=== PATIENT | female | born 1990 | race Hispanic/Latino ===

== ENCOUNTER 2019-04-24 18:43 | Emergency (ER) | payer SELFPAY ==
--- NOTE | 2019-04-24 19:05 | Emergency Department Report ---
Blank Doc - Documentation Documentation: 28-year-old female that presents with nausea and vomiting. This initial assessment/diagnostic orders/clinical plan/treatment(s) is/are subject to change based on patient's health status, clinical progression and re- assessment by fellow clinical providers in the ED. Further treatment and workup at subsequent clinical providers discretion. Patient/guardians urged not to elope from the ED as their condition may be serious if not clinically assessed and managed. Initial orders include: 1- Patient sent to [facility] for further evaluation and treatment 2- labs 3- UA
[2019-04-24 19:06] VITALS: BP 124/79
[2019-04-24 19:54] LABS: Bacteria,Urine 1+ /HPF (Negative); Bilirubin,Urine NEG (Negative); Blood,Urine NEG (Negative); Color,Urine Yellow (Yellow); Mucus,Urine 3+ /HPF
[2019-04-24 19:59] LABS: WBC,Urine < 1.0 /HPF (0.0-6.0)
[2019-04-24 21:10] LABS: Basophils # (Auto) 0.1 K/mm3 (0.0-0.1); Basophils % (Auto) 0.8 % (0.0-1.8); Eosinophils # (Auto) 0.2 K/mm3 (0.0-0.4); Eosinophils % (Auto) 1.9 % (0.0-4.3); Hematocrit 38.8 % (30.3-42.9); Hemoglobin 13.2 gm/dl (10.1-14.3); Lymphocytes # (Auto) 2.1 K/mm3 (1.2-5.4); Lymphocytes % (Auto) 22.6 % (13.4-35.0); Mean Corpuscular HGB Conc 34 % (30-34); Mean Corpuscular Volume 101 fl (79-97); Monocytes # (Auto) 0.7 K/mm3 (0.0-0.8); Monocytes % (Auto) 7.7 % (0.0-7.3); Platelet Count 334 K/mm3 (140-440); Red Blood Count 3.83 M/mm3 (3.65-5.03); Red Cell Distribution Width 13.3 % (13.2-15.2)
[2019-04-24] MEDS ORDERED: ONDANSETRON 4 MG ODT TAB PO ONE (21:20)
--- NOTE | 2019-04-24 21:25 | Emergency Department Report ---
HPI - General Chief Complaint: Nausea/Vomiting/Diarrhea Time Seen by Provider: 04/24/19 19:03 - HPI HPI: Room 37 The patient is a 28-year-old female presenting with a chief complaint of nausea vomiting. The patient states she believes she ate something "bad" last night because she awakened this morning she had nausea vomiting, diaphoresis and felt hot. Patient denies diarrhea. Patient admits to intermittent cramping periumbilical pain with the vomiting but none currently. Patient denies history of fever. Patient denies dysuria, hematuria or vaginal discharge. Patient's last cycle occurred 03/26/2019 was within normal limits. When asked how she is feeling down the patient replies "good." Location: [See above] Duration: [See above] Quality: [See above] Severity: [See above] Timing: [See above] Context: [See above] Modifying factors: [See above] Associated signs and symptoms: [see above] ED Past Medical Hx - Past Medical History Previous Medical History?: No Hx Asthma: Yes - Surgical History Past Surgical History?: No Additional Surgical History: Fallopian tubes "flushed out" bilaterally, tonsillectomy - Family History Family history: no significant - Social History Smoking Status: Current Every Day Smoker (1/3 pack per day) Substance Use Type: None (denies illicit drug use), Alcohol (rarely) - Medications Home Medications: Home Medications Medication Instructions Recorded Confirmed Last Taken Type Ondansetron [Zofran ODT TAB] 8 mg PO Q8HR #20 tab.rapdis 04/24/19 Unknown Rx ED Review of Systems ROS: Stated complaint: VOMITING Other details as noted in HPI Constitutional: diaphoresis. denies: fever Eyes: denies: eye pain ENT: denies: throat pain Respiratory: no symptoms reported Cardiovascular: denies: chest pain Endocrine: no symptoms reported Gastrointestinal: abdominal pain, nausea, vomiting. denies: diarrhea Genitourinary: denies: dysuria, hematuria, discharge, abnormal menses Musculoskeletal: denies: back pain Neurological: denies: headache Physical Exam - Physical Exam Vital Signs: Vital Signs 04/24/19 19:04 Temperature 98.4 F Pulse Rate 74 Respiratory 18 Rate Blood Pressure 124/79 O2 Sat by Pulse 100 Oximetry Physical Exam: GENERAL: The patient is well-developed well-nourished female sitting on stretcher not appearing to be in acute distress. [] HEENT: Normocephalic. Atraumatic. Extraocular motions are intact. Patient has moist mucous membranes. NECK: Supple. Trachea midline CHEST/LUNGS: Clear to auscultation. There is no respiratory distress noted. HEART/CARDIOVASCULAR: Regular. There is no tachycardia. There is no gallop rub or murmur. ABDOMEN: Abdomen is soft, nontender. Patient has normal bowel sounds. There is no abdominal distention. SKIN: There is no rash. There is no edema. There is no diaphoresis. NEURO: The patient is awake, alert, and oriented. The patient is cooperative. The patient has normal speech MUSCULOSKELETAL: There is no evidence of acute injury. ED Course Vital Signs 04/24/19 19:04 Temperature 98.4 F Pulse Rate 74 Respiratory 18 Rate Blood Pressure 124/79 O2 Sat by Pulse 100 Oximetry - Reevaluation(s) Reevaluation #1: 04/24/19 22:05 Patient states she still feels good. Tolerating po ED Medical Decision Making - Lab Data Result diagrams: 04/24/19 20:59 04/24/19 20:59 Laboratory Tests 04/24/19 04/24/19 04/24/19 19:37 20:59 20:59 WBC 9.1 RBC 3.83 Hgb 13.2 Hct 38.8 MCV 101 H MCH 35 H MCHC 34 RDW 13.3 Plt Count 334 Lymph % (Auto) 22.6 Stark % (Auto) 7.7 H Eos % (Auto) 1.9 Baso % (Auto) 0.8 Lymph # 2.1 Stark # 0.7 Eos # 0.2 Baso # 0.1 Seg Neutrophils % 67.0 Seg Neutrophils # 6.1 Sodium 139 Potassium 4.7 Chloride 105.9 Carbon Dioxide 20 L Anion Gap 18 BUN 14 Creatinine 0.7 Estimated GFR > 60 BUN/Creatinine Ratio 20 Glucose 98 Calcium 8.9 Total Bilirubin 0.30 AST 13 ALT 9 Alkaline Phosphatase 50 Total Protein 6.5 Albumin 4.1 Albumin/Globulin Ratio 1.7 Lipase 22 HCG, Qual Urine Color Yellow Urine Turbidity Turbid Urine pH 5.0 Ur Specific [place] 1.030 Urine Protein 30 mg/dl Urine Glucose (UA) Neg Urine Ketones Tr Urine Blood Neg Urine Nitrite Neg Urine Bilirubin Neg Urine Urobilinogen 2.0 Ur Leukocyte Esterase Neg Urine WBC (Auto) < 1.0 Urine RBC (Auto) 3.0 U Epithel Cells (Auto) < 1.0 Urine Bacteria (Auto) 1+ Urine Mucus 3+ 04/24/19 20:59 WBC RBC Hgb Hct MCV MCH MCHC RDW Plt Count Lymph % (Auto) Stark % (Auto) Eos % (Auto) Baso % (Auto) Lymph # Stark # Eos # Baso # Seg Neutrophils % Seg Neutrophils # Sodium Potassium Chloride Carbon Dioxide Anion Gap BUN Creatinine Estimated GFR BUN/Creatinine Ratio Glucose Calcium Total Bilirubin AST ALT Alkaline Phosphatase Total Protein Albumin Albumin/Globulin Ratio Lipase HCG, Qual Negative Urine Color Urine Turbidity Urine pH Ur Specific [place] Urine Protein Urine Glucose (UA) Urine Ketones Urine Blood Urine Nitrite Urine Bilirubin Urine Urobilinogen Ur Leukocyte Esterase Urine WBC (Auto) Urine RBC (Auto) U Epithel Cells (Auto) Urine Bacteria (Auto) Urine Mucus - Differential Diagnosis gastritis, UTI, gastroenteritis Critical care attestation.: If time is entered above; I have spent that time in minutes in the direct care of this critically ill patient, excluding procedure time. ED Disposition Clinical Impression: Nausea & vomiting Disposition: DC-01 TO HOME OR SELFCARE Is pt being admited?: No Does the pt Need Aspirin: No Condition: Stable Instructions: Acute Nausea and Vomiting (ED) Additional Instructions: Return to the emergency department should you develop worsening symptoms, inability to tolerate food or liquids, high fever or any other concerns Prescriptions: Ondansetron [Zofran ODT TAB] 8 mg PO Q8HR #20 tab.[email or web address] Referrals: DESTINI BHATTI MD [Staff Physician] - 3-5 Days Time of Disposition: 22:06
[2019-04-24 21:37] LABS: Alanine Aminotransferase 9 units/L (7-56); Albumin 4.1 g/dL (3.9-5); BUN/Creatinine Ratio 20; Blood Urea Nitrogen 14 mg/dL (7-17); Calcium 8.9 mg/dL (8.4-10.2); Hemolysis Index 21
== END 2019-04-24 22:19 | disposition home or self-care (01) ==
LOC: ED 18:43
DX: R10.33 Periumbilical pain (principal); R11.2 Nausea with vomiting, unspecified; J45.909 Unspecified asthma, uncomplicated; F17.210 Nicotine dependence, cigarettes, uncomplicated; Z90.89 Acquired absence of other organs
CPT/HCPCS: 36415; 80053; 81001; 83690; 84703; 85025; Q0162